=== PATIENT | male | born 1960 | race Caucasian/White ===

== ENCOUNTER 2016-12-24 22:18 | Emergency (ER) | payer OTHER ==
[2016-12-24 23:44] LABS: BASOPHIL % 0.6 % (0-2); PLATELET COUNT 309 x10^3mcL (130-400); RED CELL DISTRIBUTION WIDTH 13.2 % (11.5-14.5)
[2016-12-24 23:50] LABS: CARBON DIOXIDE 29.5 mmol/L (21-32); CREATININE SERUM 1.4 mg/dL (0.7-1.3); POTASSIUM SERUM 3.6 mmol/L (3.5-5.1)
[2016-12-24 23:55] LABS: ALBUMIN 3.8 g/dL (3.4-5.0); BILIRUBIN TOTAL 0.3 mg/dL (0.20-1.00); TOTAL PROTEIN, SERUM 8.2 g/dL (6.4-8.2)
[2016-12-24 23:56] LABS: microscopic required? YES; urine erythrocyte 3+ (NEGATIVE)
[2016-12-25 01:15] VITALS: BP 129/70
== END 2016-12-25 01:15 | disposition home or self-care (01) ==
LOC: ED 22:18
PROVIDERS: Emergency Medicine
DX: N20.0 Calculus of kidney (principal)
CPT/HCPCS: J1170; J1885; J2405; J7030